=== PATIENT | female | born 1990 | race Caucasian/White ===

== ENCOUNTER 2017-11-20 16:04 | Emergency (ER) | payer SELFPAY ==
[2017-11-20 16:25] VITALS: BP 103/63
--- NOTE | 2017-11-20 17:15 | UC ---
Pierre Jara Natalie, scribed for Cole Burns MD on 11/20/17 at 1704 . Throat Pain/Nasal Solitario HPI - HPI Summary HPI Summary: The pt is a 27 y/o F presenting to c/o sore throat for a week. She states her glands feel swollen and have spots. Pt additionally c/o coughing, nasal drainage, and nasal congestion The symptoms are relieved and then return, lasting a few weeks. The patient has SHx of smoking. - History of Current Complaint Chief Complaint: UCGeneralIllness Stated Complaint: THROAT PAIN Time Seen by Provider: 11/20/17 16:40 Hx Obtained From: Patient Hx Last Menstrual Period: 11/07/17 Onset/Duration: Lasting Weeks, Still Present Severity: Moderate Associated Signs & Symptoms: Positive: Other - swollen glands, nasal discharge, nasal congestion, swollen glands - Allergies/Home Medications Allergies/Adverse Reactions: Allergies Allergy/AdvReac Type Severity Reaction Status Date / Time No Known Allergies Allergy Verified 11/20/17 16:25 Home Medications: Home Medications NK [No Home Medications Reported] 11/20/17 [History Confirmed 11/20/17] PMH/Surg Hx/FS Hx/Imm Hx - Surgical History Surgical History: None - Family History Known Family History: Negative: Cardiac Disease, Hypertension - Social History Alcohol Use: Occasionally Substance Use Type: None Smoking Status (MU): Current Some Day Smoker Review of Systems ENT: Sore Throat, Nasal Discharge, Sinus Congestion Respiratory: Cough All Other Systems Reviewed And Are Negative: Yes Physical Exam Triage Information Reviewed: Yes Appearance: Well-Appearing, No Pain Distress Vital Signs: Initial Vital Signs Temp 98.7 F 11/20/17 16:17 Pulse 68 11/20/17 16:17 Resp 18 11/20/17 16:17 BP 103/63 11/20/17 16:17 Pulse Ox 99 11/20/17 16:17 Eye Exam: Normal ENT: Positive: Normal ENT inspection, Pharyngeal erythema, Nasal congestion, TMs normal Neck: Positive: Supple, Nontender Respiratory: Positive: Chest non-tender, Lungs clear, Normal breath sounds Cardiovascular: Positive: RRR, No Murmur Abdomen Description: Positive: Nontender Musculoskeletal: Positive: Strength Intact, ROM Intact Neurological: Positive: Alert Psychological: Positive: Normal Response To Family Skin Exam: Normal Throat Pain/Nasal Course/Dx - Course Course Of Treatment: 27 yr old female with sore throat, runny nose and cough. Neg strep. Viral URI, dc home fu with pmd - Differential Dx/Diagnosis Provider Diagnoses: upper respiratory infection Discharge - Discharge Plan Condition: Good Disposition: HOME Patient Education Materials: Upper Respiratory Infection (ED) Forms: *Work Release Referrals: No Primary Care Phys,NOPCP [Primary Care Provider] - [facility] [Outside] The documentation as recorded by the Pierre ibrahim Natalie accurately reflects the service I personally performed and the decisions made by Katy huang Walter, MD.
== END 2017-11-20 17:37 | disposition home or self-care (01) ==
LOC: UCEAST 16:04
DX: J06.9 Acute upper respiratory infection, unspecified (principal); F17.200 Nicotine dependence, unspecified, uncomplicated
CPT/HCPCS: 87651; 99201; G0463